=== PATIENT | female | born 1965 | race Asian ===

== ENCOUNTER → 2020-11-19 | Emergency (ER) | payer MEDICAID, OTHER ==
[~2020-11-19] VITALS: Ht 160 cm; Wt 49.0 kg
[~2020-11-19] MED LIST: ONDANSETRON ODT 4 MG TAB PO ONE
[2020-11-19 13:40] VITALS: BP 111/88
== END | disposition home or self-care (01) ==
LOC: ER 13:37
DX: L03.012 Cellulitis of left finger (principal); Z88.8 Allergy status to other drugs, medicaments and biological substances
CPT/HCPCS: 99283; Q0162